=== PATIENT | female | born 1985 | race Two or more races ===

== ENCOUNTER 2024-04-30 07:17 | Emergency (ER) | payer MEDICAID, SELFPAY ==
[2024-04-30 07:25] VITALS: BP 108/73; PULSE 96; RESP 16; TEMP 36.8; O2SAT 100; BMI 22.9
--- NOTE | 2024-04-30 08:06 | PC.NURSE ---
Pt. states she's here from home for a abscess to right labia, pt. states it's been there since yesterday. Pt. denies any painful urination. Pt. states the pain is 8/10. Pt. denies any drainage from abscess.
[2024-04-30] MEDS: HYDROcodone/APAP 5/325 TABLET 1 TAB PO (08:24)
[2024-04-30] MEDS: KETOROLAC INJ 30 MG/ML VIAL IM (08:25)
[2024-04-30] MEDS: LIDOCAINE HCL 1% 20 ML VIAL 10 ML INFL (08:40)
--- NOTE | 2024-04-30 08:59 | EDNOTE_ITS ---
ED Female Urogenital RME/HPI General Chief complaint: Urogenital-Female Stated complaint: VAG PAIN/SWELLING Time Seen by Provider: 04/30/24 07:23 Arrival date/time: 04/30/24 07:17 RME / HPI RME / HPI Narrative: 38 yo female patient c/o painful swelling in right vaginal area x 2 days. Denies vaginal discharge. Denies itching, burning. Denies dysuria. Related Data Home Medications ?Medication ?Instructions ?Recorded ?Confirmed ferrous sulfate 325 mg (65 mg 325 mg PO BID 04/17/18 04/21/18 iron) tablet (iron) folic acid 1 mg tablet 1 mg PO QDAY 04/17/18 04/21/18 vit no.95-ferrous 1 tab PO QDAY 04/17/18 04/21/18 fumarate 28 mg-folic acid 800 mcg tablet () Previous Rx's ?Medication ?Instructions ?Recorded acetaminophen 325 mg tablet (Pain 650 mg (2 x 325 mg) PO QID PRN 05/01/24 Reliever (acetaminophen)) fever or pain #30 tabs ibuprofen 800 mg tablet 800 mg PO Q8H PRN pain #20 tabs 05/01/24 Allergies Allergy/AdvReac Type Severity Reaction Status Date / Time No Known Allergies Allergy Verified 05/03/24 11:27 Review of Systems Review of Systems Narrative Review of Systems: CONST: Negative for fever, body aches and chills. HENT: Negative for neck pain/stiffness, headache, congestion, sore throat, swelling. EYES: Negative for discharge/pain or vision changes. RESP: Negative for cough/hemoptysis and shortness of breath. CV: Negative chest pain, difficulty breathing, palpitations. ABD: Negative pain, nausea, vomiting. : Negative increase frequency, dysuria, blood in urine or stool. MUSC: Negative for muscle aches, edema. SKIN: Negative rash, lesions/sores. NEURO: Negative headache, dizziness, weakness. ED Exam Narrative Physical exam: GENERAL APPEARANCE: alert and oriented x 4, well-developed, well-nourished, no acute distress HEENT: Normocephalic, atraumatic LUNGS: No increased work of breathing, no respiratory distress HEART: Good peripheral perfusion ABDOMEN: non distended : edema erythema posterior right labia consistent with infected bartholin gland cyst EXTREMITIES: atraumatic; no edema NEUROLOGIC: awake; alert and oriented x4; cranial nerves II-XII grossly intact PSYCHIATRIC: appropriate mood and affect SKIN: warm, dry, normal color; no rashes Course Quality Measures none Orders Category Date Time Status HYDROcodone*/APAP 5/325 [[place] 5/325] Med 04/30/24 08:00 Discontinued 1 tab PO X1 ONE Ketorolac Inj [Toradol Inj] Med 04/30/24 08:00 Discontinued 30 mg IM X1 ONE Lidocaine 1% 20 ml [Xylocaine 1% 20 ML] Med 04/30/24 08:00 Discontinued 10 ml INFL X1 ONE Vital Signs Vital signs: Vital Signs Temperature 98.2 F 04/30/24 07:25 Pulse Rate 96 04/30/24 07:25 Respiratory Rate 16 04/30/24 07:25 Blood Pressure 108/73 04/30/24 07:25 Pulse Oximetry (%) 100 04/30/24 07:25 Oxygen Delivery Method Room Air 04/30/24 07:25 Procedures -ED Abscess I/D Site: bartholin's gland Side (if applicable): right Local Anesthetic: lidocaine 1% Amount of anesthesia used (mL): 1 Technique: incised with #11 blade Amount of fluid expressed (mL): 5 Irrigation: No Packing used?: iodoform Complications: other (No complications) Urogenital - Female Patient data External records reviewed:: [facility] previous records Clinical information provided by:: patient Social determinants that could affect healthcare access:: none Patient has the following chronic illnesses:: none How is presenting disease/condition affected by chronic disease/condition?: no chronic disease Evaluation data The following diagnostics were reviewed and interpreted by me:: other (specify) (none) Lab and/or radiology exams considered but not ordered:: CBC, wound culture Interpretation Summary: N/A Medications / Prescriptions Medications or Prescriptions considered but not ordered:: considered PO antibiotics Medication administrations:: Medication Administration History Discontinued Medications Hydrocodone Bitart/Acetaminophen (Hydrocodone/Apap 5/325 Tablet) 1 tab PO X1 ONE Stop: 04/30/24 08:01 Last Admin: 04/30/24 08:24 Dose: 1 tab Documented By: ED Ketorolac Tromethamine (Ketorolac Inj 30 Mg/Ml Vial) 30 mg IM X1 ONE Stop: 04/30/24 08:01 Last Admin: 04/30/24 08:25 Dose: 30 mg Documented By: ED Lidocaine HCl (Lidocaine Hcl 1% 20 Ml Vial) 10 ml INFL X1 ONE Stop: 04/30/24 08:01 Last Admin: 04/30/24 08:40 Dose: 10 ml Documented By: ED Comments: used by Dr. Dutton. as above Consultations Consultation(s) initiated? (list below): No Diagnosis Urogenital Female Differential Diagnosis: urinary tract infection, bacterial vaginosis, vaginitis and cyst of Bartholin's gland Most likely diagnosis given after review of the tests above:: infected bartholin cyst Admission Indicated Admission indicated?: not indicated Admission Request Was there a request for admission?: No Disposition Plan Disposition Plan: Discharge Discharge Attestation Discharge Attestation: The patient and all family members were given an opportunity to ask questions and understood the discharge instructions. Discharge instructions specifically effects, indications for sooner follow up or return to the emergency department, and the expected course of current diagnosis. Patient condition: Stable Discharge Plan Plan Patient Disposition: HOME (Self Care) Prescriptions/Referrals Prescriptions/Med Rec: No Action ferrous sulfate [iron] 325 mg (65 mg iron) Tablet 325 mg PO BID folic acid 1 mg Tablet 1 mg PO QDAY PNV cmb#95-ferrous fumarate-FA [] 28 mg iron- 800 mcg Tablet 1 tab PO QDAY acetaminophen [Pain Reliever (acetaminophen)] 325 mg tablet 650 mg PO QID PRN (Reason: fever or pain) Qty: 30 0RF ibuprofen 800 mg tablet 800 mg PO Q8H PRN (Reason: pain) Qty: 20 0RF Referrals: Rene Méndez MD [Primary Care Provider] - In 1 week Problem List Clinical Impression: Infected cyst of Bartholin's gland duct Patient/Caregiver Discharge Instructions Education Materials: Bartholin Cyst and Abscess, ED Bartholins Cyst IandD Additional Instructions: Follow-up tomorrow either here in the emergency room or with your primary care doctor for recheck and repacking Print Language: Pashto Stand Alone Forms: Johanne Award Info., Patient Portal Info Letter
--- NOTE | 2024-04-30 08:59 | PC.NURSE ---
Dr. Dutton opened abscess, pt. tolerated well. Dr. Dutton put packing in abscess and informed pt. to return here tomorrow.
[2024-04-30 09:52] VITALS: BP 109/77; PULSE 89; RESP 18; TEMP 36.9; O2SAT 98
== END 2024-04-30 09:52 | disposition home or self-care (01) ==
PROVIDERS: Emergency Provider Emergency Medicine; PCP Obstetrics & Gynecology
DX: N75.0 Cyst of Bartholin's gland (principal)
CPT/HCPCS: 96372; 99283; J1885; J3490; A9270

== ENCOUNTER 2024-05-01 08:37 | Emergency (ER) | payer MEDICAID, SELFPAY ==
[2024-05-01 09:16] VITALS: BP 116/65; PULSE 107; RESP 18; TEMP 38.4; O2SAT 100; BMI 22.6
[2024-05-01] MEDS: IBUPROFEN TAB 400 MG TABLET 800 MG PO (10:23)
[2024-05-01] MEDS: CLINDAMYCIN PHOS INJ 150 MG/ML VIAL 6 ML 600 MG IM (10:24)
--- NOTE | 2024-05-01 11:17 | EDNOTE_ITS ---
<Statement entered by Lorna Dutton MD - 05/07/24 17:56> As co-signing physician, I was present and available for consult prn. I concur with the plan and care as documented by the midlevel provider. ED Female Urogenital RME/HPI General Chief complaint: Urogenital-Female Stated complaint: Dr. Dutton told pt. to come back Time Seen by Provider: 05/01/24 09:02 Source: patient Arrival date/time: 05/01/24 08:37 This is a 38-year-old female who presents to the emergency department with complaints of wound recheck. According to the patient she had a I&D of a Bartholin infected cyst yesterday and was told to come in today for recheck remove packing and wound care. Upon arrival patient states she did spike a fever and did not have any antibiotics since her discharge yesterday. Patient did not attempt any interventions or take any OTC medications prior to ED visit. Patient denies any other associated symptoms or aggravating factors. No modifying factors, no radiation, no migration. Limitations: no limitations Related Data Home Medications ?Medication ?Instructions ?Recorded ?Confirmed ferrous sulfate 325 mg (65 mg 325 mg PO BID 04/17/18 04/21/18 iron) tablet (iron) folic acid 1 mg tablet 1 mg PO QDAY 04/17/18 04/21/18 vit no.95-ferrous 1 tab PO QDAY 04/17/18 04/21/18 fumarate 28 mg-folic acid 800 mcg tablet () Previous Rx's ?Medication ?Instructions ?Recorded acetaminophen 325 mg tablet (Pain 650 mg (2 x 325 mg) PO QID PRN 05/01/24 Reliever (acetaminophen)) fever or pain #30 tabs clindamycin HCl 300 mg capsule 300 mg PO Q8H 7 days #21 caps 05/01/24 ibuprofen 800 mg tablet 800 mg PO Q8H PRN pain #20 tabs 05/01/24 Allergies Allergy/AdvReac Type Severity Reaction Status Date / Time No Known Allergies Allergy Verified 04/22/18 22:04 Review of Systems Review of Systems Systems Reviewed: All systems reviewed, normal except as documented Narrative Review of Systems: Gen: + fever, no chills, no weight loss EYES: No discharge, no visual changes, no pain HEENT: No ear pain, no congestion, no sore throat PULM: No shortness of breath, no cough, no congestion CV: No chest pain, no dyspnea on exertion, no palpitations GI: No nausea, no vomiting, no diarrhea, no pain, no constipation : No frequency, no urgency,? no dysuria, +pain to corey area Musc/skel: No joint pain, no back pain Skin: No rash? Psyc: No hallucinations, no depression Heme/Lymph: No easy bleeding or bruising tendencies Neuro: No weakness, no headache ED Exam Narrative Physical exam: Patient is awake and alert answering all questions General Limitations: Present no limitations General appearance: Present alert and in no apparent distress Head Head exam: Present atraumatic Eye Eye exam: Present normal appearance, PERRL and EOMI ENT ENT exam: Present normal exam, normal oropharynx and mucous membranes moist Neck Neck exam: Present normal inspection, full ROM and trachea midline Chest Chest inspection: Present normal inspection and symmetric chest wall rise Respiratory Respiratory exam: Present normal lung sounds bilaterally Cardiovascular Cardiovascular exam: Present regular rate, normal rhythm and normal heart sounds Abdominal Exam Abdominal exam: Present soft and normal bowel sounds; Absent distention, tenderness, guarding, rebound or rigidity Rectal Exam Rectal exam: Present normal inspection External exam: Absent erythema, tenderness or swelling Genitals Female CloseUp: 2 1. Half centimeter open wound clean no drainage no abscess or fluctuance noted Extremities Exam Extremities exam: Present normal inspection and full ROM Back Exam Back exam: Present normal inspection and full ROM Neurological Exam Neurological exam: Present alert, oriented X3 and CN II-XII intact Psychiatric Psychiatric exam: Present normal affect and normal mood Skin Skin exam: Present warm, dry, intact and normal color Course Quality Measures none Orders Category Date Time Status Bedside COVID-19 Antigen Test NOW Care 05/01/24 10:13 Completed Bedside Influenza A&B Antigen Test NOW Care 05/01/24 10:13 Completed Clindamycin Vial [Cleocin vial] Med 05/01/24 09:35 Discontinued 600 mg IM X1 ONE Ibuprofen Tab [Motrin Tab] Med 05/01/24 09:35 Discontinued 800 mg PO X1 ONE Vital Signs Vital signs: Vital Signs Temperature 101.2 F H 05/01/24 09:16 Pulse Rate 107 H 05/01/24 09:16 Respiratory Rate 18 05/01/24 09:16 Blood Pressure 116/65 12/26/24 09:16 Pulse Oximetry (%) 100 05/01/24 09:16 Oxygen Delivery Method Room Air 05/01/24 09:16 Urogenital - Female MDM Narrative MDM Narrative:: This 38-year-old female is here for second evaluation after she had an I&D of an infected Bartholin cyst. At the time of arrival patient is awake and alert she did have a fever which she was medicated with antipyretic. 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 The patient appears well awake hydrated vital signs stable other than fever. Patient was given IM clindamycin and antipyretics today. Patient's wound was cleansed packing was removed area looks well not erythemic no cellulitic pattern. Advised patient to start clindamycin first dose this afternoon and take as directed. Patient is to make a follow-up appointment with her MANAGEMENT SUPERVISOR or PCP for follow-up care in 24 to 48 hours Strictly advised patient that if her fever and symptoms do not improve by Sunday morning to return for further evaluation and workup. Patient data External records reviewed:: [facility] previous records Clinical information provided by:: patient Social determinants that could affect healthcare access:: none Patient has the following chronic illnesses:: None How is presenting disease/condition affected by chronic disease/condition?: no chronic disease Evaluation data The following diagnostics were reviewed and interpreted by me:: other (specify) Lab and/or radiology exams considered but not ordered:: None Interpretation Summary: None Medications / Prescriptions Medications or Prescriptions considered but not ordered:: none Medication administrations:: Medication Administration History Discontinued Medications Clindamycin Phosphate (Clindamycin Phos Inj 150 Mg/Ml Vial 6 Ml) 600 mg IM X1 ONE Stop: 05/01/24 09:36 Last Admin: 05/01/24 10:24 Dose: 600 mg Documented By: BC Ibuprofen (Ibuprofen Tab 400 Mg Tablet) 800 mg PO X1 ONE Stop: 05/01/24 09:36 Last Admin: 05/01/24 10:23 Dose: 800 mg Documented By: NAYAN all meds given and effective Consultations Consultation(s) initiated? (list below): No Diagnosis Urogenital Female Differential Diagnosis: urinary tract infection, bacterial vaginosis, vaginitis, cyst of Bartholin's gland and dysmenorrhea Most likely diagnosis given after review of the tests above:: Infected cyst of Bartholin's gland recheck Admission Indicated Admission indicated?: not indicated Explain why admission is indicated or not indicated:: none Admission Request Was there a request for admission?: No Disposition Plan Disposition Plan: Discharge Discharge Attestation Discharge Attestation: The patient and all family members were given an opportunity to ask questions and understood the discharge instructions. Discharge instructions specifically effects, indications for sooner follow up or return to the emergency department, and the expected course of current diagnosis. Patient condition: Stable Discharge Plan Plan Patient Disposition: HOME (Self Care) Patient condition on transfer: Stable Prescriptions/Referrals Prescriptions/Med Rec: New acetaminophen [Pain Reliever (acetaminophen)] 325 mg tablet 650 mg PO QID PRN (Reason: fever or pain) Qty: 30 0RF ibuprofen 800 mg tablet 800 mg PO Q8H PRN (Reason: pain) Qty: 20 0RF clindamycin HCl 300 mg capsule 300 mg PO Q8H 7 Days Qty: 21 0RF No Action ferrous sulfate [iron] 325 mg (65 mg iron) Tablet 325 mg PO BID folic acid 1 mg Tablet 1 mg PO QDAY PNV cmb#95-ferrous fumarate-FA [] 28 mg iron- 800 mcg Tablet 1 tab PO QDAY Referrals: Rene Méndez MD [Primary Care Provider] - In 1 week Problem List Clinical Impression: Infected cyst of Bartholin's gland duct Patient/Caregiver Discharge Instructions Discharge Activity: activity as tolerated Education Materials: Bartholin Cyst and Abscess Additional Instructions: - Inicie el tratamiento con antibi?ticos seg?n las indicaciones. Puede alternar entre Tylenol ibuprofeno para controlar la fiebre y el dolor. Aumentar la ingesta de l?quidos y mantenerse hidratado. Mantenga el ?ted limpia y seca. Mantenga bardales leah con bardales cl?wallace, m?dico u obstetra/ginec?logo para recibir atenci?n de seguimiento. Regrese al departamento de emergencias si los s?ntomas empeoran renata se mencion? anteriormente. - Please start antibiotic as directed. You can alternate between Tylenol ibuprofen for fever and pain control. Increase fluid intake keep hydrated. Keep area clean and dry. Keep your appointment with your clinic, physician or MANAGEMENT SUPERVISOR for follow-up care Return to the emergency department this any worsening symptoms as discussed Print Language: Polish Stand Alone Forms: Johanne Award Info., Work/School Release, Patient Portal Info Letter PA/FILTRATION SUPERVISOR Supervising Physician PA/FILTRATION SUPERVISOR Supervising Physician: dr cantu
== END 2024-05-01 11:30 | disposition home or self-care (01) ==
PROVIDERS: Emergency Provider Emergency Medicine; PCP Obstetrics & Gynecology
DX: N75.0 Cyst of Bartholin's gland (principal)
CPT/HCPCS: 87400; 87811; 96372; 99283; J0736; A9270

== ENCOUNTER 2024-05-03 10:02 | Emergency (ER) | payer MEDICAID, SELFPAY ==
[2024-05-03 10:03] VITALS: BMI 23.3
[2024-05-03 10:33] VITALS: BP 112/67; PULSE 85; RESP 20; TEMP 36.8; O2SAT 99; BMI 22.7
--- NOTE | 2024-05-03 10:57 | PD.EDFMALE ---
ED Female Urogenital RME/HPI General Chief complaint: Urogenital-Female Stated complaint: INFECTION IN VAGINA TODAY Time Seen by Provider: 05/03/24 10:40 Source: patient Arrival date/time: 05/03/24 10:02 38-year-old female with no significant past medical history presents emergency department complaining of draining Bartholin cyst to right vaginal wall. Patient reports was applying warm compress and is on clindamycin antibiotic which she just darted yesterday but came to the ER for the concern of started draining this morning. Mode of arrival: ambulatory Limitations: no limitations Related Data Home Medications ?Medication ?Instructions ?Recorded ?Confirmed ferrous sulfate 325 mg (65 mg 325 mg PO BID 04/17/18 04/21/18 iron) tablet (iron) folic acid 1 mg tablet 1 mg PO QDAY 04/17/18 04/21/18 vit no.95-ferrous 1 tab PO QDAY 04/17/18 04/21/18 fumarate 28 mg-folic acid 800 mcg tablet () Previous Rx's ?Medication ?Instructions ?Recorded acetaminophen 325 mg tablet (Pain 650 mg (2 x 325 mg) PO QID PRN 05/01/24 Reliever (acetaminophen)) fever or pain #30 tabs clindamycin HCl 300 mg capsule 300 mg PO Q8H 7 days #21 caps 05/01/24 ibuprofen 800 mg tablet 800 mg PO Q8H PRN pain #20 tabs 05/01/24 Allergies Allergy/AdvReac Type Severity Reaction Status Date / Time No Known Allergies Allergy Verified 05/03/24 10:04 Review of Systems Review of Systems Systems Reviewed: All systems reviewed, normal except as documented Constitutional Constitutional: Reports system reviewed and no additional complaints, except as documented, Denies body ache(s), Denies chills and Denies fever(s) Eyes Eyes: Reports system reviewed and no additional complaints, except as documented and Denies change in vision ENT Ears, Nose, Mouth, and Throat: Reports system reviewed and no additional complaints, except as documented, Denies disequilibrium, Denies dizziness, Denies sore throat and Denies vertigo Cardiovascular Cardiovascular: Reports system reviewed and no additional complaints, except as documented, Denies chest pain and Denies dyspnea Respiratory Respiratory: Reports system reviewed and no additional complaints, except as documented, Denies chest congestion, Denies cough and Denies dyspnea Gastrointestinal Gastrointestinal: Reports system reviewed and no additional complaints, except as documented, Denies abdominal pain, Denies nausea and Denies vomiting Genitourinary Genitourinary: Reports vaginal discharge Musculoskeletal Musculoskeletal: Reports system reviewed and no additional complaints, except as documented, Denies abnormal gait and Denies arthralgias Integumentary/Breasts Skin/Breast: Reports system reviewed and no additional complaints, except as documented, Denies erythema, Denies rash and Denies wounds Neurologic Neurologic: Reports system reviewed and no additional complaints, except as documented, Denies abnormal gait, Denies disequilibrium, Denies dizziness and Denies vertigo Past Medical History Past Medical History NEUROLOGIC: Negative Neurological Disorders CARDIAC: Negative Cardiac Disorders or Congestive Heart Failure RESPIRATORY: Negative Chronic Obstructive Pulmonary Disease (COPD) GASTROINTESTINAL: Negative Gastrointestinal Disorders GENITOURINARY: Negative Genitourinary Disorders or Renal Disease REPRODUCTIVE: Positive Previous Pregnancies (x2) MUSCULOSKELETAL: Negative Musculoskeletal Disorders ENDOCRINE: Negative Endocrine Disorders, Diabetes Mellitus Type 1 or Diabetes Mellitus Type 2 HEMATOLOGIC: Negative Blood Disorders OTHER HISTORY: Positive Hospitalization (childbirth); Negative Autoimmune Disease Family History FAMILY HISTORY: Positive Family Cancer (paternal grandfather-throat cancer); Negative Family Psychiatric Problems, Family Respiratory Disorders, Family Cardiac Disorders, Family Gastrointestinal Problems, Family Surgery or Family Anesthesia Reaction Surgical History SURGICAL: Negative Section Social History SMOKING STATUS: Never smoker SECOND HAND EXPOSURE: No ED Exam General Limitations: Present no limitations General appearance: Present alert and in no apparent distress Head Head exam: Present atraumatic Eye Eye exam: Present normal appearance, PERRL and EOMI ENT ENT exam: Present normal exam, normal oropharynx and mucous membranes moist Neck Neck exam: Present normal inspection, full ROM and trachea midline Chest Chest inspection: Present normal inspection and symmetric chest wall rise Respiratory Respiratory exam: Present normal lung sounds bilaterally Cardiovascular Cardiovascular exam: Present regular rate, normal rhythm and normal heart sounds Abdominal Exam Abdominal exam: Present soft and normal bowel sounds Genitals Female CloseUp: 1. Draining infected Bartholin cyst purulent yellow-green drainage. Extremities Exam Extremities exam: Present normal inspection and full ROM Back Exam Back exam: Present normal inspection and full ROM Neurological Exam Neurological exam: Present alert, oriented X3 and CN II-XII intact Psychiatric Psychiatric exam: Present normal affect and normal mood Skin Skin exam: Present warm and dry Course Quality Measures none Orders Category Date Time Status 1,000 mg IM w/Lido* 1% Med 05/03/24 10:57 Ordered cefTRIAXone [Rocephin] 1,000 mg Lidocaine 1% 20 ml [Xylocaine 1% 20 ML] 2.1 ml IM X1 Vital Signs Vital signs: Vital Signs Temperature 98.3 F 05/03/24 10:33 Pulse Rate 85 05/03/24 10:33 Respiratory Rate 20 05/03/24 10:33 Blood Pressure 112/67 05/03/24 10:33 Pulse Oximetry (%) 99 05/03/24 10:33 Oxygen Delivery Method Room Air 05/03/24 10:33 99% room air within normal limits Urogenital - Female MDM Narrative MDM Narrative:: 38-year-old female with no significant past medical history presents emergency department complaining of draining Bartholin cyst to right vaginal wall. Patient reports was applying warm compress and is on clindamycin antibiotic which she just darted yesterday but came to the ER for the concern of started draining this morning. Patient does not appear to to be toxic and is hemodynamically stable. No SIRS criteria or likelihood of sepsis. Bartholin cyst to right vaginal wall observed to be draining and patient is already on clindamycin antibiotic which she just darted yesterday. Patient given IM Rocephin and discharged and instructed to keep appointment that she has scheduled on 14 May with [facility] Dr[address] Méndez. Instructed to return to emergency department for any worsening symptoms or as needed. Patient data External records reviewed:: [facility] previous records Clinical information provided by:: patient Social determinants that could affect healthcare access:: none Patient has the following chronic illnesses:: None How is presenting disease/condition affected by chronic disease/condition?: no chronic disease Evaluation data The following diagnostics were reviewed and interpreted by me:: other (specify) (N/A) Lab and/or radiology exams considered but not ordered:: N/A Interpretation Summary: N/A Medications / Prescriptions Medications or Prescriptions considered but not ordered:: Ordered Medication administrations:: Medication Administration History Ceftriaxone Sodium 1,000 mg/ (Lidocaine HCl 2.1 ml) 0 mg IM X1 ONE Stop: 05/03/24 10:58 Interpreted by me Consultations Consultation(s) initiated? (list below): No Diagnosis Urogenital Female Differential Diagnosis: urinary tract infection, bacterial vaginosis, trichomoniasis, cervicitis, vaginitis, cyst of Bartholin's gland and cystitis Most likely diagnosis given after review of the tests above:: Infected cyst of Bartholin's gland Admission Indicated Admission indicated?: not indicated Admission Request Was there a request for admission?: No Disposition Plan Disposition Plan: Discharge Discharge Attestation Discharge Attestation: The patient and all family members were given an opportunity to ask questions and understood the discharge instructions. Discharge instructions specifically effects, indications for sooner follow up or return to the emergency department, and the expected course of current diagnosis. Patient condition: Stable Discharge Plan Plan Patient Disposition: HOME (Self Care) Disposition Comment: Stable Prescriptions/Referrals Prescriptions/Med Rec: No Action ferrous sulfate [iron] 325 mg (65 mg iron) Tablet 325 mg PO BID folic acid 1 mg Tablet 1 mg PO QDAY PNV cmb#95-ferrous fumarate-FA [] 28 mg iron- 800 mcg Tablet 1 tab PO QDAY acetaminophen [Pain Reliever (acetaminophen)] 325 mg tablet 650 mg PO QID PRN (Reason: fever or pain) Qty: 30 0RF ibuprofen 800 mg tablet 800 mg PO Q8H PRN (Reason: pain) Qty: 20 0RF clindamycin HCl 300 mg capsule 300 mg PO Q8H 7 Days Qty: 21 0RF Problem List Clinical Impression: Infected cyst of Bartholin's gland duct Patient/Caregiver Discharge Instructions Discharge Activity: activity as tolerated Education Materials: Bartholin Cyst and Abscess Additional Instructions: Continue with warm compress as needed. Continue taking clindamycin as previously prescribed. Keep appointment with Dr. Méndez on May 14 as discussed. Return to emergency department for any worsening symptoms or as needed. Print Language: Guatemalan Stand Alone Forms: Johanne Award Info., Patient Portal Info Letter RUBEN/SHEELA Supervising Physician RUBEN/SHEELA Supervising Physician: Dr. Bryant
[2024-05-03] MEDS: cefTRIAXone 1,000 MG, LIDOCAINE 1% 20 ML 2.1 ML IM (11:29)
== END 2024-05-03 11:51 | disposition home or self-care (01) ==
LOC: SERX 11:55
PROVIDERS: Emergency Provider Emergency Medicine; PCP Family Medicine
DX: N75.0 Cyst of Bartholin's gland (principal)
CPT/HCPCS: 96372; 99283; J0696; J3490